=== PATIENT | female | born 1960 | race Caucasian/White ===

== ENCOUNTER 2024-05-10 05:02 | Inpatient (IN) | payer OTHER, MEDICAID ==
[2024-05-10] VITALS (11 sets, daily range): BP systolic 135–190; BP diastolic 73–103
[~2024-05-10] VITALS: Ht 157.5 cm; Wt 67.8 kg
[2024-05-10] MEDS ORDERED: HydrALAZINE HCl 20 MG / ML 1ML Vial IV ONE ×2 (05:10→05:45)
[2024-05-10] MEDS ORDERED: Ondansetron HCl 2 MG / ML 2ML Vial IV ONE (05:15)
[2024-05-10 05:16] LABS: BASOPHILS ABSOLUTE AUTO 0.04 K/mm3 (0.00-0.23); BASOPHILS PERCENT AUTO 0 % (0-2); EOSINOPHILS ABSOLUTE AUTO 0.14 K/mm3 (0.00-0.68); EOSINOPHILS PERCENT AUTO 1 % (0-6); Hematocrit 41.2 % (33.0-51.0); Hemoglobin 14.1 g/dL (11.5-16.0); IMMATURE GRAN ABSOLUTE AUTO 0.02 K/mm3 (0.00-0.10); IMMATURE GRAN PERCENT AUTO 0 % (0-1); LYMPHOCYTES ABSOLUTE AUTO 1.76 K/mm3 (0.84-5.20); LYMPHOCYTES PERCENT AUTO 17 % (21-46); MONOCYTES ABSOLUTE AUTO 0.65 K/mm3 (0.16-1.47); MONOCYTES PERCENT AUTO 6 % (4-13); Mean Corpuscular HGB 30.3 pg (26.0-34.0); Mean Corpuscular HGB Conc 34.2 g/dL (31.5-36.5); Mean Corpuscular Volume 88 fL (80-100); Mean Platelet Volume 10.3 fL (9.1-12.4); NEUTROPHILS ABSOLUTE AUTO 7.65 K/mm3 (1.96-9.15); NEUTROPHILS PERCENT AUTO 75 % (41-73); Platelet Count 294 K/mm3 (150-400); RDW Coefficient Variation 14.3 % (11.7-14.2); RDW Standard Deviation 45.2 fL (35.1-46.3); Red Blood Cell Count 4.66 M/mm3 (3.80-5.20); White Blood Cell Count 10.26 K/mm3 (4.00-11.30)
[2024-05-10 05:31] LABS: International Normalized Ratio 0.96; Prothrombin Time Results 10.3 Sec (9.7-11.5)
[2024-05-10] MEDS ORDERED: Mag Hydrox/AL Hydrox/Simeth 30 ML UDC PO ONE (05:45)
[2024-05-10 05:46] LABS: Albumin/Globulin Ratio 1.1 (0.8-1.8); Bilirubin, Total 0.7 mg/dL (0.1-1.0); Bun/Creatinine Ratio 27.3 (12.0-20.0); Creatinine, Blood 0.81 mg/dL (0.40-1.00); Globulin, Blood 3.7 g/dL (2.2-4.0); Thyroid Stimulating Hormone 2.75 uIU/mL (0.360-4.800); Total Protein, Blood 7.7 g/dL (6.4-8.2)
[2024-05-10] MEDS ORDERED: Metoclopramide HCl 5MG / ML 2ML Vial IV ONE (06:15)
[2024-05-10] MEDS ORDERED: NS 1,000 ML IV SCH (06:20)
[2024-05-10] MEDS ORDERED: FLU VACC TS2024-25(6MOS UP)/PF 45 MCG/0.5 ML SYRINGE IM PRN (06:35)
[2024-05-10] MEDS ORDERED: HydrALAZINE HCl 20 MG / ML 1ML Vial IV PRN (06:35)
[2024-05-10] MEDS ORDERED: Morphine Sulfate 4 MG/1 ML Injection IV PRN (06:35)
[2024-05-10] MEDS ORDERED: Lactated Ringer's 1,000 ML IV SCH (06:35)
[2024-05-10] MEDS ORDERED: Ondansetron HCl 2 MG / ML 2ML Vial IV PRN (06:35)
[2024-05-10] MEDS ORDERED: Mag Hydrox/Al Hydrox/Simeth 18 ML,Lidocaine 2% Viscous Soln 9 ML,Atropine/Scopalam/Hyos... PO ONE (06:50)
[2024-05-10] MEDS ORDERED: Losartan Potassium 25 MG Tab PO SCH (09:00)
[2024-05-10 09:30] LABS: Source, Urine Clean Catch
[2024-05-10 10:00] LABS: Appearance, Urine Clear (Clear); Bilirubin, Urine Neg (Neg); Blood, Urine Neg (Neg); Glucose Qualitative, Urine Neg (Neg); Ketones, Urine Neg (Neg); Leukocyte Esterase, Urine Neg (Neg); Nitrite, Urine Neg (Neg); Protein, Urine Neg (Neg); Specific Gravity, Urine 1.015 (1.003-1.022); Urobilinogen, Urine NORM (Normal)
[2024-05-10 10:07] LABS: Color, Urine Pale Yellow (P-Yellow)
[2024-05-10] MEDS ORDERED: AmLODIPine Besylate 5 MG Tab PO SCH ×2 (13:00→21:00)
[2024-05-10] MEDS ORDERED: Losartan Potassium 25 MG Tab PO ONE (13:00)
--- NOTE | 2024-05-10 13:00 | NUR ---
Telephone report received from HUNTER Méndez. Pt coming to PCU 12 shortly.
[2024-05-10] MEDS ORDERED: LOSA25 PO (13:23)
--- NOTE | 2024-05-10 14:22 | NUR ---
Spoke with Dr. Jeffery regarding Tylenol and TUMS request from the pt..New orders received.
[2024-05-10] MEDS ORDERED: Acetaminophen 325 MG TABLET PO PRN (14:25)
[2024-05-10] MEDS ORDERED: Calcium Carbonate 500 MG Tab Chew PO PRN (14:25)
[2024-05-11] VITALS (10 sets, daily range): BP systolic 141–199; BP diastolic 67–118
[2024-05-11 04:51] LABS: Bun/Creatinine Ratio 18.7 (12.0-20.0); Calcium, Blood 8.2 mg/dL (8.5-10.1); Creatinine, Blood 0.8 mg/dL (0.40-1.00); Potassium, Blood 3.9 mmol/L (3.5-5.5)
--- NOTE | 2024-05-11 05:12 | NUR ---
SHIFT SUMMARY ASSUMED CARE OF PT AT 1900. PT IS A/OX4. HEART SOUNDS REGULAR. LUNGS REGULAR. PT DENIED ABD PAIN DURING THE NOC AND ACTUALLY SAID THEY HAD AN APPETITE AND ASKING IF SHE CAN GET A BREAKFAST TRAY. PT WAS A 1P SBA TO BATHROOM FOR CORDS. PT C/O HEADACHE THIS AM.
[2024-05-11] MEDS ORDERED: Enoxaparin 40 MG/0.4 ML SYR SC SCH (09:00)
[2024-05-11] MEDS ORDERED: Docusate Sodium 100 MG Cap PO SCH (09:00)
[2024-05-11] MEDS ORDERED: Losartan Potassium 50 MG Tab PO SCH (09:00)
--- NOTE | 2024-05-11 10:50 | NUR ---
CALLED TWO HOURS POST AM MEDICATIONS, PER REQUEST, TO REEVALUATE BLOOD PRESSURE. HE WANTS 10MG HYDRALIZINE GIVEN AND HE WILL ADD AN ADDITIONAL PO BLOOD PRESSURE MEDICATION. SEE NOTES FOR ANY UPDATES.
[2024-05-11] MEDS ORDERED: Losartan Potassium 50 MG Tab PO ONE (11:00)
--- NOTE | 2024-05-11 17:40 | NUR ---
SHIFT SUMMARY THE PT IS A&OX4, SBA IN THE ROOM, CALLS APPROPRAITELY, AND MAKES HER NEEDS KNOWN. SHE HAS BEEN ON RA W/ SP02 >93%. NO COMPLAINTS OF SOB. ON TELE THE PT HAS BEEN SR 90'S-100'S, HR UP TO 110'S WITH ACTIVITY. HER BLOOD PRESSURE HAS BEEN HYPTERTENSIVE, AND DR. TEJADA MADE SOME MEDICATION CHANGES. SEE PREVIOUS NOTE. THE PT HAS HAD A HEADACHE T/O THE SHIFT AND HAS BEEN MEDICATED W/ TYLENOL PER EMAR. WHEN GIVEN HYDRALIZINE IN THE AFTERNOON, THE PT WAS NAUSEATED AND MEDICATED WITH ZOFRAN. SHE DENIES ANY ANGINA OR CHEST PRESSURE. SEE NOTES FOR ANY UPDATES.
[2024-05-11] MEDS ORDERED: HydroCHLOROthiazide 25 mg Tab PO SCH (17:50)
--- NOTE | 2024-05-11 23:45 | NUR ---
UPDATE PATIENT HYPERTENSIVE DURING 0000 ROUNDS. DENIES ANY SYMPTOMS ASSOCIATED AT THIS TIME. PATIENT WAS SLEEPING PRIOR TO VITALS TAKEN. CALL PLACED TO RESIDENT WITH UPDATE PATIENT STATED "I DO NOT WANT TO TAKE THE HYDRALAZINE, I DID NOT LIKE THE REACTION". RESIDENT TO PLACE ORDERS.
[2024-05-12] VITALS (8 sets, daily range): BP systolic 154–190; BP diastolic 81–106
[2024-05-12] MEDS ORDERED: Labetalol HCL 5 MG/ML 4ML Injection (Single Dose) IV PRN (00:15)
--- NOTE | 2024-05-12 05:23 | NUR ---
SHIFT SUMMARY PATIENT ALERT, ORIENTED x4. SOFT SPOKEN BUT ABLE TO MAKE NEEDS KNOWN TO STAFF. HYPERTENSIVE T/O NIGHT, SEE PREVIOUS NOTE. NO EVENTS ON TELE, SR 70-80s. ON RA WITH SPO2 >90%. PATIENT AMBULATING TO BATHROOM SBA, ADEQUATE OUTPUT DURING THE NIGHT. PATIENT SLEPT FOR MAJORITY OF NIGHT. MEDICATED PER EMAR FOR HEADACHE. OTHERWISE, NO CHANGES. WILL REPORT TO DAY SHIFT RN.
[2024-05-12] MEDS ORDERED: AmLODIPine Besylate 5 MG Tab PO SCH (09:00)
[2024-05-12] MEDS ORDERED: HydroCHLOROthiazide 25 mg Tab PO SCH (09:00)
[2024-05-12] MEDS ORDERED: Losartan Potassium 50 MG Tab PO SCH (09:00)
[2024-05-12] MEDS ORDERED: HydrALAZINE HCl 25 MG Tab PO SCH (14:00)
[2024-05-12] MEDS ORDERED: AMLO5 PO (14:10)
[2024-05-12] MEDS ORDERED: Calcium Carbon500 MG PO (14:12)
[2024-05-12] MEDS ORDERED: HYDCHL50 PO (14:12)
[2024-05-12] MEDS ORDERED: DOCU100 PO (14:12)
[2024-05-12] MEDS ORDERED: DULCOLAX400 MG/5 M PO (14:13)
--- NOTE | 2024-05-12 15:35 | NUR ---
DISCHARGE SUMMARY PT DISCHARGED AND GIVEN WRITTEN AND VERBAL INSTRUCTIONS. ALL BELONGINGS RETURNED AND LEFT WITH PATIENT. IV REMOVED AND DRESSED WITH GAUZE AND COBAN. PT WAS ESCORTED TO THE EXIT BY THIS RN VIA WHEELCHAIR AND TAKEN HOME IN A TAXI.
== END 2024-05-12 15:00 | disposition home or self-care (01) | DRG 305 ==
LOC: ER 05:02 → PCU 05:03 → ERHOLD 05:03 → PCU 13:14
PROVIDERS: Emergency Medicine; Internal Medicine; ADMIT Family Medicine
DX: I16.1 Hypertensive emergency (principal); R07.9 Chest pain, unspecified; K52.9 Noninfective gastroenteritis and colitis, unspecified; I10 Essential (primary) hypertension; F17.210 Nicotine dependence, cigarettes, uncomplicated; R73.9 Hyperglycemia, unspecified; E86.0 Dehydration; Z90.49 Acquired absence of other specified parts of digestive tract; Z98.84 Bariatric surgery status
CPT/HCPCS: 36415; 70450; 74174; 80048; 80053; 81003; 84443; 84484; 85025; 85610; 85730; 93005; 93010; 96361; 96372; 96374-59; 96375-59; 96376; 96376-59; 99285-25; A9270; G0378; J0360; J1650; J2270; J2405; J2765; J7030; J7120; Q9967